=== PATIENT | female | born 1940 | race Caucasian/White ===

== ENCOUNTER → 2016-07-15 | Outpatient (CLI) | payer MEDICARE, OTHER | END | disposition home or self-care (01) | LOC: YCFC.O 10:14 | PROVIDERS: ATTEND Anesthesiology Pain Medicine | DX: Z79.891 Long term (current) use of opiate analgesic (principal) ==

== ENCOUNTER 2016-07-28 21:13 | Emergency (ER) | payer MEDICARE, OTHER ==
[2016-07-28 21:35] VITALS: TEMP 98.9
[2016-07-28 21:46] VITALS: O2SAT 100
[2016-07-28] MEDS ORDERED: cloNIDine HCL 0.1 MG TAB PO ONE (22:06)
--- NOTE | 2016-07-28 23:41 | ED.PDOC ---
History of Present Illness - General Chief Complaint: Blood Pressure Problem Stated Complaint: blood pressure elevated Time Seen by Provider: 07/28/16 21:27 Source: patient Exam Limitations: no limitations - History of Present Illness Initial Comments: the patient is a 76-year-old female presenting to the emergency room due to elevated blood pressure. This evening she was feeling a little bit tremulous and mildly dizzy. She took her blood pressure several times and found the systolics were in the 2 teens. She normally takes losartan in the morning but does not really check her blood pressure in the evening. She reports normal blood pressures in the mornings are in the 140s to 160s on the systolic end. No sick or near-syncope. No severe headache. No neurological changes. No falls. No new symptoms otherwise. Timing/Duration: 1-3 hours Severity: mild Improving Factors: nothing Worsening Factors: nothing Associated Symptoms: malaise Allergies/Adverse Reactions: Allergies NO KNOWN ALLERGY Allergy (Unverified 02/12/13 07:25) Home Medications: Ambulatory Orders Aspirin 81 mg PO DAILY 02/12/13 Duloxetine HCl [Cymbalta] 60 mg PO BID 02/12/13 HYDROcodone 5MG/APAP 325MG [Cumming 5/325] 1 ea PO BID 02/12/13 Levothyroxine Sodium [Synthroid] 125 mcg PO DAILY 02/12/13 Telmisartan-Amlodipine [Twynsta] 1 tab PO DAILY 02/12/13 Bimatoprost 0.01% Opth [Lumigan Opth Jennifer] 2.5 ml OPHTH DAILY 11/24/13 Coconut Oil [Coconut Oil Organic] 1,000 mg PO DAILY 11/24/13 Duloxetine HCl 60 mg PO BID 11/24/13 HYDROcodone 10MG/APAP 325MG [Cumming 10/325] 1 tab PO Q4H PRN 11/24/13 Levothyroxine Sodium [Synthroid] 0.112 mg PO 0700 11/24/13 Telmisartan-Amlodipine [Twynsta 80-5 mg] 1 tab PO DAILY 11/24/13 Amitriptyline HCl [Elavil] 25 - 50 mg PO QPM #20 tab 03/08/14 predniSONE [Prednisone] 40 mg PO DAILY #10 tab 03/08/14 Review of Systems - Review of Systems Constitutional: States: malaise EENTM: States: no symptoms reported Respiratory: States: no symptoms reported Cardiology: States: no symptoms reported Gastrointestinal/Abdominal: States: no symptoms reported Genitourinary: States: no symptoms reported Musculoskeletal: States: no symptoms reported Skin: States: no symptoms reported Neurological: States: tremors Endocrine: States: no symptoms reported All other Systems: No Change from Baseline Past Medical History (General) - Patient Medical History Hx Seizures: No Hx Stroke: No Hx Dementia: No Hx Asthma: No Hx of COPD: No Hx Cardiac Disorders: No Hx Congestive Heart Failure: No Hx Pacemaker: No Hx Hypertension: Yes Hx Thyroid Disease: Yes Hx Diabetes: Yes Hx Gastroesophageal Reflux: No Hx Renal Disease: No Hx Cancer: No Hx of HIV: No Hx MRSA: No Surgical History: other - Vaccination History Hx Influenza Vaccination: Yes Immunizations Up to Date: Yes - Social History Hx Tobacco Use: No Hx Chewing Tobacco Use: No Hx Alcohol Use: Yes Hx Substance Use: No Hx Substance Use Treatment: No Hx Depression: No Hx Physical Abuse: No Hx Emotional Abuse: No Hx Suspected Abuse: No - Female History Patient : No Family Medical History - Family History Mother Age (years): 93 Living Status: Still Living Hx Family Asthma: No Hx Family Congestive Heart Failure: No Hx Family Hypertension: Yes Hx Family Stroke: No Hx Family Diabetes: No Hx Family Cancer: No Father Family History: Unknown Living Status: Age at (years of age): 70 Cause of : alz Hx Family Asthma: No Hx Family Congestive Heart Failure: No Hx Family Hypertension: No Hx Family Stroke: No Hx Family Diabetes: No Hx Family Cancer: No Physical Exam - Physical Exam General Appearance: Alert, Comfortable, No apparent distress Eye Exam: bilateral normal Ears, Nose, Throat: normal ENT inspection, normal pharynx Neck: non-tender, full range of motion, supple, normal inspection Respiratory: chest non-tender, lungs clear, normal breath sounds, no respiratory distress, no accessory muscle use Cardiovascular/Chest: normal peripheral pulses, regular rate, rhythm, no edema Peripheral Pulses: radial,right: 2+, radial,left: 2+, dorsalis pedis,right: 2+, dorsalis pedis,left: 2+ Gastrointestinal/Abdominal: non tender, soft Rectal Exam: deferred Back Exam: normal inspection Extremity: normal range of motion, non-tender, normal inspection, no pedal edema , normal capillary refill Neurologic: alert, normal mood/affect, oriented x 3 Skin Exam: normal color Comments: Vital Signs - 24 hr 07/28/16 07/28/16 07/28/16 21:31 21:45 21:56 Temperature 98.9 F Pulse Rate Pulse Rate [ 84 68 71 monitor] Respiratory 20 16 Rate Blood Pressure 220/86 204/102 201/85 [Left Arm] Blood Pressure 203/98 [Right Arm] O2 Sat by Pulse 97 100 Oximetry 07/28/16 07/28/16 07/28/16 22:13 22:36 22:47 Temperature Pulse Rate 62 Pulse Rate [ 65 72 62 monitor] Respiratory Rate Blood Pressure 195/67 191/94 168/93 [Left Arm] Blood Pressure [Right Arm] O2 Sat by Pulse Oximetry 07/28/16 07/28/16 07/28/16 22:59 23:00 23:10 Temperature Pulse Rate Pulse Rate [ 62 80 62 monitor] Respiratory 21 Rate Blood Pressure 161/87 161/87 138/85 [Left Arm] Blood Pressure [Right Arm] O2 Sat by Pulse 100 Oximetry 07/28/16 07/28/16 23:21 23:37 Temperature Pulse Rate 62 64 Pulse Rate [ monitor] Respiratory Rate Blood Pressure 138/68 141/67 [Left Arm] Blood Pressure [Right Arm] O2 Sat by Pulse Oximetry Progress - Progress Progress: 07/28/16 23:42 the patient is a 76-year-old female presenting with mildly symptomatic uncontrolled hypertension. She received 1 dose of oral clonidine and blood pressures have come down to the 130s and 140s on the systolic end. The patient needs to check her blood pressure twice daily when she is good and relaxed. She is going to be written a prescription for Norvasc 5 mg daily to be taken in the evening. If her systolic blood pressures are falling below the 120s with any regularity then she will discontinue this. She needs to follow- up with her primary care doctor towards the end of next week. Return to the emergency room for any acute worsening. ER warnings were given. Departure - Departure Clinical Impression: Uncontrolled hypertension Disposition: Discharge to Home or Self Care Condition: Fair Departure Forms: ED Discharge - Pt. Copy, Patient Portal Self Enrollment Instructions: DI for High Blood Pressure Diet: low salt diet Activity: increase activity as tolerated Referrals: JOSE SCOTT [Primary Care Provider] - 1-2 Weeks Home Medications: Ambulatory Orders Aspirin 81 mg PO DAILY 02/12/13 Duloxetine HCl [Cymbalta] 60 mg PO BID 02/12/13 HYDROcodone 5MG/APAP 325MG [Cumming 5/325] 1 ea PO BID 02/12/13 Levothyroxine Sodium [Synthroid] 125 mcg PO DAILY 02/12/13 Telmisartan-Amlodipine [Twynsta] 1 tab PO DAILY 02/12/13 Bimatoprost 0.01% Opth [Lumigan Opth Jennifer] 2.5 ml OPHTH DAILY 11/24/13 Coconut Oil [Coconut Oil Organic] 1,000 mg PO DAILY 11/24/13 Duloxetine HCl 60 mg PO BID 11/24/13 HYDROcodone 10MG/APAP 325MG [Cumming 10/325] 1 tab PO Q4H PRN 11/24/13 Levothyroxine Sodium [Synthroid] 0.112 mg PO 0700 11/24/13 Telmisartan-Amlodipine [Twynsta 80-5 mg] 1 tab PO DAILY 11/24/13 Amitriptyline HCl [Elavil] 25 - 50 mg PO QPM #20 tab 03/08/14 predniSONE [Prednisone] 40 mg PO DAILY #10 tab 03/08/14 Additional Instructions: the patient is a 76-year-old female presenting with mildly symptomatic uncontrolled hypertension. She received 1 dose of oral clonidine and blood pressures have come down to the 130s and 140s on the systolic end. The patient needs to check her blood pressure twice daily when she is good and relaxed. She is going to be written a prescription for Norvasc 5 mg daily to be taken in the evening. If her systolic blood pressures are falling below the 120s with any regularity then she will discontinue this. She needs to follow- up with her primary care doctor towards the end of next week. Return to the emergency room for any acute worsening. ER warnings were given.
[2016-07-28 23:57] VITALS: BP 130/85
== END 2016-07-28 23:57 | disposition home or self-care (01) ==
LOC: ER 21:13
DX: I10 Essential (primary) hypertension (principal); E07.9 Disorder of thyroid, unspecified; E11.9 Type 2 diabetes mellitus without complications; Z79.899 Other long term (current) drug therapy; Z79.82 Long term (current) use of aspirin

== ENCOUNTER 2016-08-12 08:00 | Day surgery (SDC) | payer MEDICARE, OTHER ==
[2016-08-12] MEDS ORDERED: SODIUM BICARBONATE VIAL 50 MEQ/50 ML VIAL ONE (09:59)
[2016-08-12] MEDS ORDERED: LIDOCAINE 1% MPF 5 ML VIAL ONE ×2 (09:59→10:10)
[2016-08-12] MEDS ORDERED: methylPREDNISolone ACETATE 80 MG/ML VIAL ONE (09:59)
[2016-08-12] MEDS ORDERED: SODIUM CHLORIDE 0.9% 10 ML VIAL ONE (09:59)
[2016-08-12 11:47] VITALS: O2SAT 99
[2016-08-12 13:12] VITALS: BP 193/78; TEMP 98.2
== END 2016-08-12 13:10 | disposition home or self-care (01) ==
LOC: AMB 08:00
PROVIDERS: ATTEND Anesthesiology Pain Medicine
DX: M54.16 Radiculopathy, lumbar region (principal); G89.4 Chronic pain syndrome; M96.1 Postlaminectomy syndrome, not elsewhere classified; Z79.82 Long term (current) use of aspirin; Z79.899 Other long term (current) drug therapy
CPT/HCPCS: 62323; 76000; J1030

== ENCOUNTER → 2016-08-20 | Outpatient (CLI) | payer OTHER | END | disposition home or self-care (01) | LOC: YCFC.O 10:01 | PROVIDERS: ATTEND Nurse Practitioner Family | DX: I10 Essential (primary) hypertension (principal); E03.9 Hypothyroidism, unspecified; Z13.220 Encounter for screening for lipoid disorders ==

== ENCOUNTER → 2016-09-11 | Outpatient (CLI) | payer OTHER ==
--- NOTE | 2016-09-12 14:35 | RAD ---
History: Bruit. Preoperative evaluation. Chest x-ray: PA and lateral views are compared with 2014 exam. Mild rotation to the thoracolumbar spine results in distortion of the mediastinal soft tissues. Overall contour is stable since the more remote study. No pulmonary infiltrate or effusion. Diffuse osteopenia. IMPRESSION: Stable chest since 2014. Electronically signed by: Yani Sabillon MD 09/12/2016 2:34 PM CDT
== END | disposition home or self-care (01) ==
LOC: YCFC.O 15:32
PROVIDERS: ATTEND Nurse Practitioner Family
DX: R53.83 Other fatigue (principal); R09.89 Other specified symptoms and signs involving the circulatory and respiratory systems; R50.9 Fever, unspecified

== ENCOUNTER 2017-01-18 05:15 | Emergency (ER) | payer OTHER ==
[2017-01-18 05:35] VITALS: TEMP 96.9; O2SAT 98
[2017-01-18] MEDS ORDERED: KETOROLAC TROMETHAMINE INJ 30 MG/ML VIAL IM ONE (05:42)
--- NOTE | 2017-01-18 05:45 | ED.PDOC ---
History of Present Illness - General Chief Complaint: Back Pain or Injury Stated Complaint: pinching pain to lower back Time Seen by Provider: 01/18/17 05:36 Source: patient - History of Present Illness Initial Comments: Patient presents with acute on chronic back pain. Lumbar area with radiation down the left leg. She just had back surgery one week ago. Has had previous episodes. Feels like "needles" and shoots down the leg from the left lower back. No associated symptoms. No other complaints. Timing/Duration: 4-6 hours Severity: moderate Improving Factors: rest Worsening Factors: movement Associated Symptoms: denies symptoms Allergies/Adverse Reactions: Allergies NO KNOWN ALLERGY Allergy (Verified 01/18/17 05:27) Home Medications: Ambulatory Orders Aspirin 81 mg PO DAILY 02/12/13 Levothyroxine Sodium [Synthroid] 100 mcg PO DAILY 08/12/16 Losartan Potassium & Hydrochlo [Losartan Potassium/Hydroc 50-12.5 mg] 1 tab PO DAILY 08/12/16 Zolpidem Tartrate [Ambien] 5 mg PO BEDTIME 08/12/16 Acetaminophen W/ Codeine [Tylenol W/ CODEINE #3] 1 - 2 ea PO PRN PRN 01/18/17 Bimatoprost 0.01% Ophth [Lumigan Ophth Jennifer] 1 each OPHTH BEDTIME 01/18/17 Cyclobenzaprine HCl [Flexeril] 1 each PO PRN PRN 01/18/17 Tramadol HCl [Ultram] 50 mg PO PRN PRN 01/18/17 Review of Systems - Review of Systems Constitutional: States: no symptoms reported EENTM: States: no symptoms reported Respiratory: States: no symptoms reported Cardiology: States: no symptoms reported Gastrointestinal/Abdominal: States: no symptoms reported Genitourinary: States: no symptoms reported Musculoskeletal: States: see HPI Skin: States: no symptoms reported Neurological: States: no symptoms reported Endocrine: States: no symptoms reported Hematologic/Lymphatic: States: no symptoms reported Past Medical History (General) - Patient Medical History Hx Seizures: No Hx Stroke: No Hx Dementia: No Hx Asthma: No Hx of COPD: No Hx Cardiac Disorders: No Hx Congestive Heart Failure: No Hx Pacemaker: No Hx Hypertension: Yes Hx Thyroid Disease: Yes Hx Diabetes: No Hx Gastroesophageal Reflux: No Hx Renal Disease: No Hx Cancer: No Hx of HIV: No Hx MRSA: No Surgical History: other - Vaccination History Hx Tetanus, Diphtheria Vaccination: No Hx Influenza Vaccination: Yes Hx Pneumococcal Vaccination: No - Social History Hx Tobacco Use: No Years Tobacco Use: 30 Hx Chewing Tobacco Use: No Hx Alcohol Use: Yes - occ Hx Substance Use: No Hx Substance Use Treatment: No Hx Depression: No Hx Physical Abuse: No Hx Emotional Abuse: No Hx Suspected Abuse: No - Female History Patient : No Family Medical History - Family History Mother Age (years): 93 Living Status: Still Living Hx Family Asthma: No Hx Family Congestive Heart Failure: No Hx Family Hypertension: Yes Hx Family Stroke: No Hx Family Diabetes: No Hx Family Cancer: No Father Family History: Unknown Living Status: Age at (years of age): 70 Cause of : alz Hx Family Asthma: No Hx Family Congestive Heart Failure: No Hx Family Hypertension: No Hx Family Stroke: No Hx Family Diabetes: No Hx Family Cancer: No Physical Exam - Physical Exam General Appearance: Alert Respiratory: lungs clear Cardiovascular/Chest: normal peripheral pulses Gastrointestinal/Abdominal: normal bowel sounds, non tender, soft Extremity: other - positive straight leg raise. Negative cross-leg. Lumbar area NTTP. Progress - Progress Progress: 01/18/17 05:45 Toradol 30 mg IM x one. Departure - Departure Clinical Impression: Low back pain Disposition: Discharge to Home or Self Care Condition: Good Departure Forms: ED Discharge - Pt. Copy, Patient Portal Self Enrollment Diet: resume usual diet Activity: increase activity as tolerated Referrals: Nay Ordoñez FNP [Primary Care Provider] - 1-2 Weeks Home Medications: Ambulatory Orders Aspirin 81 mg PO DAILY 02/12/13 Levothyroxine Sodium [Synthroid] 100 mcg PO DAILY 08/12/16 Losartan Potassium & Hydrochlo [Losartan Potassium/Hydroc 50-12.5 mg] 1 tab PO DAILY 08/12/16 Zolpidem Tartrate [Ambien] 5 mg PO BEDTIME 08/12/16 Acetaminophen W/ Codeine [Tylenol W/ CODEINE #3] 1 - 2 ea PO PRN PRN 01/18/17 Bimatoprost 0.01% Ophth [Lumigan Ophth Ejnnifer] 1 each OPHTH BEDTIME 01/18/17 Cyclobenzaprine HCl [Flexeril] 1 each PO PRN PRN 01/18/17 Tramadol HCl [Ultram] 50 mg PO PRN PRN 01/18/17
[2017-01-18 06:10] VITALS: BP 138/77
== END 2017-01-18 06:10 | disposition home or self-care (01) ==
LOC: ER 05:15
DX: M54.5 Low back pain (principal); I10 Essential (primary) hypertension; E07.9 Disorder of thyroid, unspecified; Z79.82 Long term (current) use of aspirin; Z79.899 Other long term (current) drug therapy

== ENCOUNTER 2017-01-19 01:42 | Emergency (ER) | payer OTHER ==
[2017-01-19 01:58] VITALS: BP 157/72; TEMP 97.3; O2SAT 98
[2017-01-19] MEDS ORDERED: KETOROLAC TROMETHAMINE INJ 60 MG/2 ML VIAL IM ONE (02:02)
--- NOTE | 2017-01-19 02:05 | ED.PDOC ---
History of Present Illness - General Chief Complaint: Back Pain or Injury Stated Complaint: back pain Time Seen by Provider: 01/19/17 01:43 Source: patient, RN notes reviewed, Vital Signs reviewed, old records Exam Limitations: no limitations - History of Present Illness Initial Comments: Patient had significant back surgery ~1 week ago. She was here last night with pain and was given Toradol which really helped. She felt well most of the day but tonight the pain worsened again and the Tylenol #3 and Flexeril were not getting her pain controlled. She came to see if she could get another shot of Toradol since it worked so well for her last night. The pain is in her low back and going down her L leg. Timing/Duration: 1 week Quality/Severity: severe Back Pain Location: lumbar spine Back Pain Radiation: lower legs Method of Injury/Prior Injury: other - Recent surgery Improving Factors: medication - Toradol Worsening Factors: movement Associated Symptoms: lower back pain Allergies/Adverse Reactions: Allergies NO KNOWN ALLERGY Allergy (Verified 01/18/17 05:27) Home Medications: Ambulatory Orders Aspirin 81 mg PO DAILY 02/12/13 Levothyroxine Sodium [Synthroid] 100 mcg PO DAILY 08/12/16 Losartan Potassium & Hydrochlo [Losartan Potassium/Hydroc 50-12.5 mg] 1 tab PO DAILY 08/12/16 Zolpidem Tartrate [Ambien] 5 mg PO BEDTIME 08/12/16 Acetaminophen W/ Codeine [Tylenol W/ CODEINE #3] 1 - 2 ea PO PRN PRN 01/18/17 Bimatoprost 0.01% Ophth [Lumigan Ophth Jennifer] 1 each OPHTH BEDTIME 01/18/17 Cyclobenzaprine HCl [Flexeril] 1 each PO PRN PRN 01/18/17 Tramadol HCl [Ultram] 50 mg PO PRN PRN 01/18/17 Review of Systems - Review of Systems Constitutional: States: no symptoms reported Respiratory: States: no symptoms reported Cardiology: States: no symptoms reported Musculoskeletal: States: back pain Skin: States: no symptoms reported Neurological: States: no symptoms reported All other Systems: No Change from Baseline Past Medical History (General) - Patient Medical History Hx Seizures: No Hx Stroke: No Hx Dementia: No Hx Asthma: No Hx of COPD: No Hx Cardiac Disorders: No Hx Congestive Heart Failure: No Hx Pacemaker: No Hx Hypertension: Yes Hx Thyroid Disease: Yes Hx Diabetes: No Hx Gastroesophageal Reflux: No Hx Renal Disease: No Hx Cancer: No Hx of HIV: No Hx Hepatitis C: No Hx MRSA: No - Vaccination History Hx Tetanus, Diphtheria Vaccination: Yes Hx Influenza Vaccination: Yes Hx Pneumococcal Vaccination: No Immunizations Up to Date: Yes - Social History Hx Tobacco Use: No Hx Chewing Tobacco Use: No Hx Alcohol Use: Yes Hx Substance Use: No Hx Substance Use Treatment: No Hx Depression: No Hx Physical Abuse: No Hx Emotional Abuse: No Hx Suspected Abuse: No - Female History Patient is a Female of Child Bearing Age (10 -59 yrs old): No Patient : No Family Medical History - Family History Mother Age (years): 93 Living Status: Still Living Hx Family Asthma: No Hx Family Congestive Heart Failure: No Hx Family Hypertension: Yes Hx Family Stroke: No Hx Family Diabetes: No Hx Family Cancer: No Father Family History: Unknown Living Status: Age at (years of age): 70 Cause of : alz Hx Family Asthma: No Hx Family Congestive Heart Failure: No Hx Family Hypertension: No Hx Family Stroke: No Hx Family Diabetes: No Hx Family Cancer: No Physical Exam - Physical Exam General Appearance: Alert, Comfortable, No apparent distress, Well Developed, Well Groomed, Well Hydrated, Well Nourished Extremity Exam: normal range of motion, non-tender Neurologic: no motor/sensory deficits, alert, normal mood/affect, oriented x 3 Skin Exam: normal color, warm/dry Departure - Departure Clinical Impression: Low back pain Qualifiers: Chronicity: acute Back pain laterality: left Sciatica presence: with sciatica Sciatica laterality: sciatica of left side Qualified Code(s): M54.42 - Lumbago with sciatica, left side Time of Disposition: 02:06 Disposition: Discharge to Home or Self Care Condition: Good Departure Forms: ED Discharge - Pt. Copy, Patient Portal Self Enrollment Instructions: DI for Back Pain With Sciatica Diet: resume usual diet Activity: increase activity as tolerated Referrals: Nay Ordoñez FNP [Primary Care Provider] - 1-2 Weeks Home Medications: Ambulatory Orders Aspirin 81 mg PO DAILY 02/12/13 Levothyroxine Sodium [Synthroid] 100 mcg PO DAILY 08/12/16 Losartan Potassium & Hydrochlo [Losartan Potassium/Hydroc 50-12.5 mg] 1 tab PO DAILY 08/12/16 Zolpidem Tartrate [Ambien] 5 mg PO BEDTIME 08/12/16 Acetaminophen W/ Codeine [Tylenol W/ CODEINE #3] 1 - 2 ea PO PRN PRN 01/18/17 Bimatoprost 0.01% Ophth [Lumigan Ophth Jennifer] 1 each OPHTH BEDTIME 01/18/17 Cyclobenzaprine HCl [Flexeril] 1 each PO PRN PRN 01/18/17 Tramadol HCl [Ultram] 50 mg PO PRN PRN 01/18/17
== END 2017-01-19 02:25 | disposition home or self-care (01) ==
LOC: ER 01:42
DX: M54.42 Lumbago with sciatica, left side (principal); I10 Essential (primary) hypertension; E07.9 Disorder of thyroid, unspecified; Z79.82 Long term (current) use of aspirin; Z79.899 Other long term (current) drug therapy

== ENCOUNTER 2017-02-02 11:59 | Emergency (ER) | payer MEDICARE, OTHER ==
--- NOTE | 2017-02-02 12:21 | ED.PDOC ---
History of Present Illness - General Chief Complaint: General Stated Complaint: dizziness Time Seen by Provider: 02/02/17 12:15 Source: patient Exam Limitations: no limitations - History of Present Illness Initial Comments: Jennifer Simpson 76 y/o female with recent back surgery stated that she might have taken several of her medications-muscle relaxer,diazepam,and pain medications. Had been feeling dizzy since yesterday.No blurry vision,syncopal episode ,numbness or double vision fever. Timing/Duration: 24 hours Severity: moderate Worsening Factors: movement Associated Symptoms: denies symptoms Allergies/Adverse Reactions: Allergies NO KNOWN ALLERGY Allergy (Verified 02/02/17 12:22) Home Medications: Ambulatory Orders Aspirin 81 mg PO DAILY 02/12/13 Levothyroxine Sodium [Synthroid] 100 mcg PO DAILY 08/12/16 Losartan Potassium & Hydrochlo [Losartan Potassium/Hydroc 50-12.5 mg] 1 tab PO DAILY 08/12/16 Zolpidem Tartrate [Ambien] 5 mg PO BEDTIME 08/12/16 Acetaminophen W/ Codeine [Tylenol W/ CODEINE #3] 1 - 2 ea PO PRN PRN 01/18/17 Bimatoprost 0.01% Ophth [Lumigan Ophth Jennifer] 1 each OPHTH BEDTIME 01/18/17 Cyclobenzaprine HCl [Flexeril] 1 each PO PRN PRN 01/18/17 Tramadol HCl [Ultram] 50 mg PO PRN PRN 01/18/17 Review of Systems - Review of Systems Constitutional: States: no symptoms reported EENTM: States: no symptoms reported Respiratory: States: no symptoms reported Cardiology: States: no symptoms reported Gastrointestinal/Abdominal: States: no symptoms reported Genitourinary: States: no symptoms reported Musculoskeletal: States: no symptoms reported Skin: States: no symptoms reported Neurological: States: no symptoms reported Endocrine: States: no symptoms reported Hematologic/Lymphatic: States: no symptoms reported Past Medical History (General) - Patient Medical History Hx Seizures: No Hx Stroke: No Hx Dementia: No Hx Asthma: No Hx of COPD: No Hx Cardiac Disorders: No Hx Congestive Heart Failure: No Hx Pacemaker: No Hx Hypertension: Yes Hx Thyroid Disease: Yes Hx Diabetes: No Hx Gastroesophageal Reflux: No Hx Renal Disease: No Hx Cancer: No Hx of HIV: No Hx Hepatitis C: No Hx MRSA: No Surgical History: other - low back,cataract - Vaccination History Hx Tetanus, Diphtheria Vaccination: Yes Hx Influenza Vaccination: Yes Hx Pneumococcal Vaccination: No - Social History Hx Tobacco Use: No Hx Chewing Tobacco Use: No Hx Alcohol Use: Yes Hx Substance Use: No Hx Substance Use Treatment: No Hx Depression: No Hx Physical Abuse: No Hx Emotional Abuse: No Hx Suspected Abuse: No - Female History Patient : No Family Medical History - Family History Mother Age (years): 93 Living Status: Still Living Hx Family Asthma: No Hx Family Congestive Heart Failure: No Hx Family Hypertension: Yes Hx Family Stroke: No Hx Family Diabetes: No Hx Family Cancer: No Father Family History: Unknown Living Status: Age at (years of age): 70 Cause of : alz Hx Family Asthma: No Hx Family Congestive Heart Failure: No Hx Family Hypertension: No Hx Family Stroke: No Hx Family Diabetes: No Hx Family Cancer: No Physical Exam - Physical Exam General Appearance: Alert, Comfortable, No apparent distress Eye Exam: bilateral normal Ears, Nose, Throat: hearing grossly normal, normal ENT inspection, normal pharynx Neck: full range of motion, supple Respiratory: chest non-tender, lungs clear Cardiovascular/Chest: normal peripheral pulses, regular rate, rhythm, no gallop , no murmur Peripheral Pulses: radial,right: 1+, radial,left: 1+, dorsalis pedis,right: 1+, dorsalis pedis,left: 1+ Gastrointestinal/Abdominal: normal bowel sounds, non tender, soft Rectal Exam: normal exam, normal rectal tone, other - impacted stool Extremity: non-tender, no pedal edema, no calf tenderness Neurologic: no motor/sensory deficits, alert, normal mood/affect, oriented x 3, other - speech fluent Skin Exam: normal color, warm/dry, other - well healed skin surgical incision Lymphatic: no adenopathy Progress - Progress Progress: 02/02/17 12:24 Vital Signs - 8 hr 02/02/17 12:00 Temperature 97.3 F L Pulse Rate [ 100 H pulse ox] Respiratory 18 Rate Blood Pressure 105/60 [Left Arm] - Results/Orders Results/Orders: Laboratory Tests 02/02/17 02/02/17 02/02/17 12:39 12:39 12:39 WBC 7.6 RBC 4.45 Hgb 13.1 Hct 39.5 MCV 88.6 MCH 29.5 MCHC 33.3 RDW 13.6 Plt Count 399 MPV 7.5 Absolute Neuts (auto) 4.50 Absolute Lymphs (auto) 1.90 Absolute Monos (auto) 0.60 Absolute Eos (auto) 0.60 H Absolute Basos (auto) 0.00 Neutrophils % 58.9 Lymphocytes % 24.5 Monocytes % 8.0 Eosinophils % 8.1 H Basophils % 0.5 Sodium 137 Potassium 4.3 Chloride 103 Carbon Dioxide 21 Anion Gap 17.3 BUN 39 H Creatinine 1.63 H BUN/Creatinine Ratio 23.9 H Random Glucose 106 H Serum Osmolality 283.6 Calcium 10.2 Total Bilirubin 0.7 AST 17 ALT 12 Alkaline Phosphatase 79 Troponin I < 0.02 Serum Total Protein 7.1 Albumin 4.3 Globulin 2.8 Albumin/Globulin Ratio 1.5 Stool Occult Blood 02/02/17 12:41 WBC RBC Hgb Hct MCV MCH MCHC RDW Plt Count MPV Absolute Neuts (auto) Absolute Lymphs (auto) Absolute Monos (auto) Absolute Eos (auto) Absolute Basos (auto) Neutrophils % Lymphocytes % Monocytes % Eosinophils % Basophils % Sodium Potassium Chloride Carbon Dioxide Anion Gap BUN Creatinine BUN/Creatinine Ratio Random Glucose Serum Osmolality Calcium Total Bilirubin AST ALT Alkaline Phosphatase Troponin I Serum Total Protein Albumin Globulin Albumin/Globulin Ratio Stool Occult Blood Negative - EKG/XRAY/CT EKG: Sinus, no ST T wave changes Comments: heart rate 88 Departure - Departure Clinical Impression: Dehydration symptoms, Renal insufficiency, Orthostatic dizziness, Constipation due to opioid therapy, History of lumbosacral spine surgery Time of Disposition: 14:20 Disposition: Discharge to Home or Self Care Condition: Good Instructions: DI for Dehydration -- Adult Activity: increase activity as tolerated Referrals: Nay Orodñez [employer]NAGER [Primary Care Provider] - 1-2 Weeks Home Medications: Ambulatory Orders Aspirin 81 mg PO DAILY 02/12/13 Levothyroxine Sodium [Synthroid] 100 mcg PO DAILY 08/12/16 Losartan Potassium & Hydrochlo [Losartan Potassium/Hydroc 50-12.5 mg] 1 tab PO DAILY 08/12/16 Zolpidem Tartrate [Ambien] 5 mg PO BEDTIME 08/12/16 Acetaminophen W/ Codeine [Tylenol W/ CODEINE #3] 1 - 2 ea PO PRN PRN 01/18/17 Bimatoprost 0.01% Ophth [Lumigan Ophth Jennifer] 1 each OPHTH BEDTIME 01/18/17 Cyclobenzaprine HCl [Flexeril] 1 each PO PRN PRN 01/18/17 Tramadol HCl [Ultram] 50 mg PO PRN PRN 01/18/17 Additional Instructions: Need to drink additional water;May use over the counter MIRALAX as directed on package insert,citrucel,for constipation;DO NOT TAKE DIAZEPAM and FLEXERIL TOGETHER PLEASE READ PHARMACY PACKAGE INSERT BEFORE TAKING ANY MEDICINE AND IF THERE IS QUESTION CALL THE MD PRESCRIBER;Follow up with primary md 2016 call for appointment
[2017-02-02 12:22] VITALS: TEMP 97.3
[2017-02-02] MEDS ORDERED: LACTATED RINGERS 1,000 ML IVS ONE (12:25)
[2017-02-02] MEDS ORDERED: SODIUM CHLORIDE 0.9% 500ML 500 ML IVS ONE (13:44)
[2017-02-02] MEDS ORDERED: LABETALOL INJ 5 MG/ML VIAL IV ONE (14:34)
[2017-02-02] MEDS ORDERED: KETOROLAC TROMETHAMINE INJ 30 MG/ML VIAL IV ONE (14:34)
[2017-02-02] MEDS ORDERED: PROMETHAZINE HCL INJ 25 MG/ML VIAL IM ONE (14:48)
[2017-02-02 16:28] VITALS: BP 151/91; O2SAT 95
== END 2017-02-02 14:15 | disposition home or self-care (01) ==
LOC: ER 11:59
DX: R42 Dizziness and giddiness (principal); E86.0 Dehydration; K59.03 Drug induced constipation; N28.9 Disorder of kidney and ureter, unspecified; I10 Essential (primary) hypertension; E07.9 Disorder of thyroid, unspecified; Z79.82 Long term (current) use of aspirin; T40.2X5A Adverse effect of other opioids, initial encounter; Y92.9 Unspecified place or not applicable
CPT/HCPCS: 36415; 80053; 82270; 84443; 84484; 85025; 93005; J1885; J2550; J7040; J7120

== ENCOUNTER → 2017-03-20 | Outpatient (CLI) | payer OTHER | END | disposition home or self-care (01) | LOC: GMAJ 12:01 | PROVIDERS: ATTEND Family Medicine | DX: E03.9 Hypothyroidism, unspecified (principal) ==

== ENCOUNTER 2017-05-06 12:03 | Emergency (ER) | payer OTHER ==
[2017-05-06 12:19] VITALS: TEMP 96.5
[2017-05-06] MEDS ORDERED: SODIUM CHLORIDE 0.9% (FLUSH) 10 ML SYG IV PRN (12:55)
--- NOTE | 2017-05-06 13:03 | ED.PDOC ---
History of Present Illness - General Chief Complaint: Blood Pressure Problem Stated Complaint: elevated blood pressure Time Seen by Provider: 05/06/17 12:15 Source: patient Exam Limitations: no limitations - History of Present Illness Initial Comments: PT PRESENTS TO THE ED FROM PHYSICIAL THERAPY AFTER HAVING AN EPISODE OF DIZZINESS. PT WAS THEN FOUND TO HAVE AN ELEVATED BP READING. PTS BLOOD PRESSURE IS NORMAL IN TRIAGE TODAY AND PATIENT DENIES SYMPTOMS OF DIZZINESS CURRENTLY. PT STATES THAT DIZZINESS HAS BEEN INTERMITTENT OVER THE PAST WEEK. Timing/Duration: 1 week Severity: mild Improving Factors: rest Worsening Factors: nothing Associated Symptoms: denies symptoms Allergies/Adverse Reactions: Allergies NO KNOWN ALLERGY Allergy (Verified 02/02/17 12:22) Home Medications: Ambulatory Orders Aspirin 81 mg PO DAILY 02/12/13 Levothyroxine Sodium [Synthroid] 100 mcg PO DAILY 08/12/16 Bimatoprost 0.01% Ophth [Lumigan Ophth Jennifer] 1 each OPHTH BEDTIME 01/18/17 Tramadol HCl [Ultram] 50 mg PO PRN PRN 01/18/17 Gabapentin 05/06/17 Review of Systems - Review of Systems Constitutional: Denies: chills, fever EENTM: Denies: nose congestion, throat pain Respiratory: Denies: cough, short of breath Cardiology: Denies: chest pain, palpitations, syncope Gastrointestinal/Abdominal: Denies: diarrhea, nausea, vomiting Genitourinary: Denies: dysuria, frequency Musculoskeletal: Denies: joint pain, joint swelling Skin: Denies: dryness, lesions Neurological: Denies: headache, numbness Endocrine: States: no symptoms reported Hematologic/Lymphatic: States: no symptoms reported Past Medical History (General) - Patient Medical History Hx Seizures: No Hx Stroke: No Hx Dementia: No Hx Asthma: No Hx of COPD: No Hx Cardiac Disorders: No Hx Congestive Heart Failure: No Hx Pacemaker: No Hx Hypertension: Yes Hx Thyroid Disease: Yes Hx Diabetes: No Hx Gastroesophageal Reflux: No Hx Renal Disease: No Hx Cancer: No Hx of HIV: No Hx Hepatitis C: No Hx MRSA: No - Vaccination History Hx Tetanus, Diphtheria Vaccination: Yes Hx Influenza Vaccination: Yes Hx Pneumococcal Vaccination: No - Social History Hx Tobacco Use: Yes Hx Chewing Tobacco Use: No Hx Alcohol Use: Yes Hx Substance Use: No Hx Substance Use Treatment: No Hx Depression: No Hx Physical Abuse: No Hx Emotional Abuse: No Hx Suspected Abuse: No - Female History Patient : No Family Medical History - Family History Mother Age (years): 93 Living Status: Still Living Hx Family Asthma: No Hx Family Congestive Heart Failure: No Hx Family Hypertension: Yes Hx Family Stroke: No Hx Family Diabetes: No Hx Family Cancer: No Father Family History: Unknown Living Status: Age at (years of age): 70 Cause of : alz Hx Family Asthma: No Hx Family Congestive Heart Failure: No Hx Family Hypertension: No Hx Family Stroke: No Hx Family Diabetes: No Hx Family Cancer: No Physical Exam - Physical Exam General Appearance: Alert, Comfortable, No apparent distress, Well Developed, Well Groomed, Well Hydrated, Well Nourished Ears, Nose, Throat: hearing grossly normal Neck: non-tender, full range of motion Respiratory: lungs clear, normal breath sounds, no respiratory distress Cardiovascular/Chest: regular rate, rhythm, no murmur Gastrointestinal/Abdominal: non tender, soft Back Exam: normal inspection Extremity: non-tender, normal inspection Neurologic: alert, normal mood/affect, oriented x 3 Skin Exam: normal color, warm/dry Progress - Progress Progress: 05/06/17 14:26 PT RESTING COMFORTABLY WITHOUT COMPLAINT. LABS AND DIAGNOSTIC STUDIES DISCUSSED. DISCUSSED THE NEED TO RESTART BP MEDS AND MONITOR BP 2-3 TIMES A DAY AT HOME. RECOMMEND FOLLOW UP WITH PCP REGARDING BP MANAGEMENT. REPEAT BP 190/98. PO LOSARTAN ORDERED. 05/06/17 15:28 PT CONTINUES TO REST COMFORTABLY. REPEAT BP 189/89. - Results/Orders Results/Orders: 05/06/17 12:55 Sodium Chloride 0.9% (Flush) [Saline Flush Syringe] 10 ml IV PRN PRN 05/06/17 12:56 IV Care:Saline Lock per Protoc QSHIFT Telemetry .ONCE EKG Stat Pulse Ox Stat Pulse Oximetry Assessment DAILY 05/06/17 14:30 Losartan Potassium [Cozaar] 100 mg PO DAILY Laboratory Results - last 24 hr 05/06/17 05/06/17 12:56 13:12 WBC 6.5 RBC 4.76 Hgb 14.0 Hct 42.8 MCV 89.8 MCH 29.5 MCHC 32.8 L RDW 14.1 Plt Count 342 MPV 7.6 Absolute Neuts (auto) 4.30 Absolute Lymphs (auto) 1.50 Absolute Monos (auto) 0.50 Absolute Eos (auto) 0.10 Absolute Basos (auto) 0.00 Neutrophils % 66.3 Lymphocytes % 22.9 Monocytes % 8.2 Eosinophils % 2.2 Basophils % 0.4 PT 10.7 INR 0.950 PTT (SP) 32.6 Sodium 139 Potassium 3.7 Chloride 104 Carbon Dioxide 24 Anion Gap 14.7 BUN 14 Creatinine 0.66 BUN/Creatinine Ratio 21.2 H Random Glucose 99 Serum Osmolality 278.0 Calcium 9.8 Magnesium 1.8 Creatine Kinase 51 CK-MB (CK-2) 2.5 CK-MB (CK-2) % Not Reportable Troponin I < 0.02 Urine Color Yellow Urine Appearance Clear Urine pH 7.0 Ur Specific Gallant 1.025 Urine Protein Negative Urine Glucose (UA) Negative Urine Ketones Trace Urine Blood Negative Urine Nitrite Negative Urine Bilirubin Negative Urine Urobilinogen 0.2 Ur Leukocyte Esterase Negative Urine RBC 0-1 Urine WBC 0-1 Ur Epithelial Cells 0-1 Amorphous Sediment 1+ Urine Bacteria 0 Urine Mucus Large - EKG/XRAY/CT EKG: Sinus - @73BPM, NL INTERVALS, NL AXIS, no ST T wave changes, Unchanged from - 02/02/17 Departure - Departure Clinical Impression: Intermittent hypertension, Orthostatic dizziness Time of Disposition: 15:32 Disposition: Discharge to Home or Self Care Condition: Good Departure Forms: ED Discharge - Pt. Copy, Patient Portal Self Enrollment Instructions: DI for High Blood Pressure Referrals: Isra Mathews MD [Primary Care Provider] - 1-5 Days Home Medications: Ambulatory Orders Aspirin 81 mg PO DAILY 02/12/13 Levothyroxine Sodium [Synthroid] 100 mcg PO DAILY 08/12/16 Bimatoprost 0.01% Ophth [Lumigan Ophth Jennifer] 1 each OPHTH BEDTIME 01/18/17 Tramadol HCl [Ultram] 50 mg PO PRN PRN 01/18/17 Gabapentin 05/06/17
[2017-05-06] MEDS ORDERED: LOSARTAN POTASSIUM 100 MG TAB PO SCH (14:30)
[2017-05-06 15:56] VITALS: BP 193/98; O2SAT 99
== END 2017-05-06 15:56 | disposition home or self-care (01) ==
LOC: ER 12:03
DX: I10 Essential (primary) hypertension (principal); R42 Dizziness and giddiness; Z87.891 Personal history of nicotine dependence; Z79.82 Long term (current) use of aspirin; Z79.899 Other long term (current) drug therapy

== ENCOUNTER → 2017-09-18 | Outpatient (CLI) | payer OTHER | LOC: GMAJ 10:16 | PROVIDERS: ATTEND Family Medicine | DX: E03.9 Hypothyroidism, unspecified (principal) ==

== ENCOUNTER → 2017-09-30 | Outpatient (CLI) | payer MEDICARE, OTHER ==
--- NOTE | 2017-10-02 08:57 | MAM ---
EXAM DESCRIPTION: 3D Screening BILATERAL : Digital Mammography. CLINICAL HISTORY: 77 years Female ANNUAL SCREENING . No complaints. No family history of breast cancer. Postmenopausal. Taking HRT approximately 20 years ago. Bilateral cyst aspirations.. COMPARISON: 2-D digital screening bilateral study 04/01/2012.. No prior reports available. TECHNIQUE: Bilateral CC and MLO projection full-field images, 3-D tomosynthesis digital mammographic technique. Also bilateral synthesized CC/ MLO full-field images. CAD not utilized. FINDINGS: The breast parenchymal density pattern is: Heterogeneously dense breast tissue, which may obscure small masses. No skin thickening or nipple retraction bilateral vascular calcifications. Bilateral solitary microcalcifications and coarse calcifications, largest on the left. Bilateral nipple inversion. No focal, stellate mass or density, focal asymmetry , and no suspicious microcalcifications bilaterally. Stable mammograms compared to prior study, taking into account differences in mammographic technique IMPRESSION: BI-RADS CATEGORY: 2 - BENIGN FINDINGS. FOLLOW UP: Routine digital bilateral screening, one year interval from September 2017. Written communication explaining the IMPRESSION and follow-up, will be mailed to the patient and referring health care provider. According to the [employer], yearly mammograms are recommended starting at age 40 and continuing as long as a woman is in good health. Any breast change noted on a breast self-exam should be reported promptly to the patient's healthcare provider. Breast MRI is recommended for women with an approximately 20-25% or greater lifetime risk of breast cancer, including women with a strong family history of breast or ovarian cancer and women who have been treated for Hodgkin's disease. A negative mammographic report should not delay tissue diagnosis in patients with significant clinical history or physical findings. Extremely dense breast tissue limits the sensitivity of digital mammography. Electronically signed by: Shahriar Moreno MD 10/02/2017 8:55 AM CDT
== END ==
LOC: MAMMO 11:22
PROVIDERS: ATTEND Family Medicine
DX: Z12.31 Encounter for screening mammogram for malignant neoplasm of breast (principal)

== ENCOUNTER 2017-12-01 05:49 | Day surgery (SDC) | payer MEDICARE, OTHER ==
[2017-12-01] MEDS ORDERED: PROPOFOL 200 MG/20 ML VIAL IV ONE (07:00)
[2017-12-01] MEDS: LACTATED RINGERS 1,000 ML ONE (07:10)
[2017-12-01] MEDS ORDERED: MIDAZOLAM INJ 2 MG/2 ML VIAL ONE (07:17)
[2017-12-01] MEDS ORDERED: fentaNYL CITRATE INJ 50 MCG/ML AMP ONE (07:18)
--- NOTE | 2017-12-01 10:18 | OP ---
DATE OF PROCEDURE: 12/01/17 PREOPERATIVE DIAGNOSIS: 1. Colon cancer screen. POSTOPERATIVE DIAGNOSIS: 1. Normal colonoscopy to the ascending colon. 2. Very long and tortuous sigmoid colon. 3. External hemorrhoids. PROCEDURE: 1. Colonoscopy. SURGEON: Isra Mathews MD. ANESTHESIA: MAC by Kenneth Molina CRNA. ESTIMATED BLOOD LOSS: None. COMPLICATIONS: None apparent. TECHNIQUE: After informed consent was obtained from the patient, the patient was taken to the Endoscopy Suite and put in the left lateral decubitus position. After adequate IV sedation was obtained, a digital rectal exam was performed. The patient was noted to have large external hemorrhoids. There were no intraluminal masses. The sphincter tone was decreased. The colonoscope was then passed with good visualization the colon. The bowel prep was excellent. As soon as we got into the sigmoid, the patient began having very redundant and repetitive loops. There was almost a "corkscrewing" effect as we traversed through the sigmoid colon. This made passage of the scope very difficult. We did multiple maneuvers and repositioning to try to advance the scope safely, but met lots of resistance. I was able to get through the transverse colon and here briefly into the ascending colon, but was unable to reach the cecum. The scope was then withdrawn slowly over an 8 minute period and the remaining colon was carefully inspected and there were no abnormalities found whatsoever. The scope was removed. The patient tolerated the procedure well. Postoperatively, she was in good condition and released from the Recovery Room per protocol. She will followup with me on a p.r.n. basis. Due to her age of 77, she will not need another colonoscopy at any interval unless she has symptoms that would dictate otherwise. #[id number] [facility]
[2017-12-01 10:24] VITALS: BP 169/74; TEMP 97.1; O2SAT 100
== END 2017-12-01 09:50 | disposition home or self-care (01) ==
LOC: AMB 05:49
PROVIDERS: ATTEND Family Medicine
DX: Z12.11 Encounter for screening for malignant neoplasm of colon (principal); Q43.8 Other specified congenital malformations of intestine; K64.4 Residual hemorrhoidal skin tags; E89.0 Postprocedural hypothyroidism; G89.29 Other chronic pain; M54.5 Low back pain; F32.9 Major depressive disorder, single episode, unspecified; I10 Essential (primary) hypertension; G47.00 Insomnia, unspecified; Z79.82 Long term (current) use of aspirin; Z79.899 Other long term (current) drug therapy
CPT/HCPCS: 00812; 45378; J2250; J3010; J3490; J7120

== ENCOUNTER 2018-04-03 12:03 | Emergency (ER) | payer MEDICARE ==
[2018-04-03 12:37] VITALS: TEMP 97.3
--- NOTE | 2018-04-03 12:39 | ED.PDOC ---
History of Present Illness - General Chief Complaint: Blood Pressure Problem Stated Complaint: blood pressure Time Seen by Provider: 04/03/18 12:29 Source: patient Exam Limitations: no limitations - History of Present Illness Initial Comments: Patient presents with a high blood pressure. She said she woke up this morning feeling like it was high. She said she saw "floaty" things. She claims that this is normal for her when her pressure is high. This symptom has since resolved. 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 She says that she has been having "hot flashes" recently so she unilaterally increased her levothyroxine from 88 mcg per day to 100 mcg per day. She said she started this two days ago. Denies chest pain, dyspnea, history of bipedal edema, arm pain. Currently asymptomatic. Timing/Duration: 1-3 hours Severity: moderate Improving Factors: nothing Worsening Factors: nothing Associated Symptoms: denies symptoms Allergies/Adverse Reactions: Allergies NO KNOWN ALLERGY Allergy (Verified 02/02/17 12:22) Home Medications: Ambulatory Orders Bimatoprost 0.01% Ophth [Lumigan Ophth Jennifer] 1 each OPHTH BEDTIME 01/18/17 Tramadol HCl [Ultram] 50 mg PO PRN PRN 01/18/17 Metoprolol Succinate [Toprol Xl] 50 mg PO DAILY 12/01/17 Clonidine HCl 0.1 mg PO QAM PRN #3 ml 04/03/18 Levothyroxine Sodium 88 mcg PO DAILY 04/03/18 Losartan Potassium 100 mg PO QAM 04/03/18 Meloxicam [Mobic] 7.5 mg PO DAILY 04/03/18 Review of Systems - Review of Systems Constitutional: States: no symptoms reported EENTM: States: no symptoms reported Respiratory: States: no symptoms reported Cardiology: States: see HPI Gastrointestinal/Abdominal: States: no symptoms reported Genitourinary: States: no symptoms reported Musculoskeletal: States: no symptoms reported Skin: States: no symptoms reported Neurological: States: no symptoms reported Endocrine: States: see HPI Hematologic/Lymphatic: States: no symptoms reported Past Medical History (General) - Patient Medical History Hx Seizures: No Hx Stroke: No Hx Dementia: No Hx Asthma: No Hx of COPD: No Hx Cardiac Disorders: No Hx Congestive Heart Failure: No Hx Pacemaker: No Hx Hypertension: Yes Hx Thyroid Disease: Yes Hx Diabetes: No Hx Gastroesophageal Reflux: No Hx Renal Disease: No Hx Cancer: No Hx of HIV: No Hx Hepatitis C: No Hx MRSA: No - Vaccination History Hx Tetanus, Diphtheria Vaccination: Yes Hx Influenza Vaccination: Yes Hx Pneumococcal Vaccination: No - Social History Hx Tobacco Use: Yes Hx Chewing Tobacco Use: No Hx Alcohol Use: Yes Hx Substance Use: No Hx Substance Use Treatment: No Hx Depression: No Hx Physical Abuse: No Hx Emotional Abuse: No Hx Suspected Abuse: No - Female History Patient : No Family Medical History - Family History Mother Age (years): 93 Living Status: Still Living Hx Family Asthma: No Hx Family Congestive Heart Failure: No Hx Family Hypertension: Yes Hx Family Stroke: No Hx Family Diabetes: No Hx Family Cancer: No Father Family History: Unknown Living Status: Age at (years of age): 70 Cause of : alz Hx Family Asthma: No Hx Family Congestive Heart Failure: No Hx Family Hypertension: No Hx Family Stroke: No Hx Family Diabetes: No Hx Family Cancer: No Physical Exam - Physical Exam General Appearance: Alert Eye Exam: bilateral normal Ears, Nose, Throat: normal ENT inspection Neck: non-tender, full range of motion, supple Respiratory: lungs clear, normal breath sounds Cardiovascular/Chest: normal peripheral pulses, regular rate, rhythm Gastrointestinal/Abdominal: normal bowel sounds, non tender, soft Progress - Progress Progress: 04/03/18 14:35 No sign of end-organ damage on labs. Patient's blood pressure came down to 182 systolic but then went back up to 200. She remained asymptomatic. She was given clonidine 01. mg po x one and an RX for two more tabs to take daily if her pressure goes above 160 systolic in the morning. Care instructions given. E.R. warnings given. Questions were elicited and answered. Patient voiced understanding and agreement with the plan. She will follow up with Dr. Mathews on Friday. Departure - Departure Clinical Impression: Hypertension Disposition: Discharge to Home or Self Care Condition: Good Departure Forms: ED Discharge - Pt. Copy, Patient Portal Self Enrollment Instructions: DI for High Blood Pressure Diet: other - as per your regular doctor Activity: increase activity as tolerated Referrals: Isra Mathews MD [Primary Care Provider] - 1-2 Weeks Prescriptions: Clonidine HCl 0.1 mg PO QAM PRN #3 ml PRN Reason: Hypertension Home Medications: Ambulatory Orders Bimatoprost 0.01% Ophth [Lumigan Ophth Jennifer] 1 each OPHTH BEDTIME 01/18/17 Tramadol HCl [Ultram] 50 mg PO PRN PRN 01/18/17 Metoprolol Succinate [Toprol Xl] 50 mg PO DAILY 12/01/17 Clonidine HCl 0.1 mg PO QAM PRN #3 ml 04/03/18 Levothyroxine Sodium 88 mcg PO DAILY 04/03/18 Losartan Potassium 100 mg PO QAM 04/03/18 Meloxicam [Mobic] 7.5 mg PO DAILY 04/03/18 Additional Instructions: See your regular doctor on Friday for further evaluation. Return to the E.R. for numbness or weakness in any extremity, shortness of breath, or chest pain.
[2018-04-03] MEDS ORDERED: cloNIDine HCL 0.1 MG TAB PO ONE (14:34)
[2018-04-03 14:58] VITALS: BP 155/75; O2SAT 99
== END 2018-04-03 14:56 | disposition home or self-care (01) ==
LOC: ER 12:03
DX: I10 Essential (primary) hypertension (principal); E07.9 Disorder of thyroid, unspecified; Z79.899 Other long term (current) drug therapy; Z87.891 Personal history of nicotine dependence

== ENCOUNTER → 2018-05-15 | Outpatient (CLI) | payer MEDICARE | LOC: GMAJ 10:34 | PROVIDERS: ATTEND Family Medicine | DX: E03.9 Hypothyroidism, unspecified (principal) ==

== ENCOUNTER → 2019-02-17 | Outpatient (CLI) | payer MEDICARE | LOC: GMAJ 15:15 | PROVIDERS: ATTEND Family Medicine | DX: E03.9 Hypothyroidism, unspecified (principal); I10 Essential (primary) hypertension ==

== ENCOUNTER → 2019-03-31 | Outpatient (CLI) | payer MEDICARE ==
--- NOTE | 2019-03-31 16:35 | RAD ---
XR HIP 2 OR MORE VIEWS, XR PELVIS 1-2 VIEWS HISTORY: 79 years Female LOW BACK PAIN COMPARISON: None. TECHNIQUE: AP neutral and frog-leg views of the left hip as well as a single AP view the pelvis. FINDINGS: Sacrum is partially obscured by overlying bowel gas. Partially imaged lumbosacral fusion hardware. Please see same day dedicated lumbar spine radiographs. No acute fracture or dislocation observed. Mild narrowing of the hip joint spaces bilaterally. Mild subchondral sclerosis at the SI joints suggest mild degenerative change. Included overlying soft tissues demonstrate no definite acute abnormality. Scattered vascular calcifications are present. IMPRESSION: No radiographic evidence of an acute osseous abnormality in the pelvis or left hip. Electronically signed by: Jeyson Onofre MD 03/31/2019 4:33 PM CDT
--- NOTE | 2019-04-01 11:06 | MRI ---
EXAM DESCRIPTION: Lumbar Spine w/o Contrast : Magnetic Resonance Imaging. CLINICAL HISTORY: LOW BACK PAIN COMPARISON: MRI scan lumbar spine 08/25/2013 prior to fusion surgery. Radiographs of the lumbar spine pelvis and left hip on the same visit. TECHNIQUE: Multiplanar, multiple standard sequences, non contrast MRI, lumbar spine.. Magnetic susceptibility artifact places limitation on diagnostic quality. FINDINGS: L5-S1: The disc is well visualized on axial T2 series 501, image 3. Fusion construct L3-S1. Interbody fusion devices in each disc space. Also anterior retainer at L5-S1 with fixation screws in the L5 and S1 anterior marrow. No soft tissue edema or fluid collection abutting the posterior elements. No fluid collection or soft tissue mass within the canal. L5-S1: 4 mm grade 1 anterolisthesis. Right foraminal stenosis and moderate left foraminal narrowing. No canal stenosis. Facet joints are fused. Unremarkable position of the interbody fusion device. L4-L5: Interbody fusion device customary position. Mild to moderate right foraminal narrowing. Facet joints are fused. No significant canal narrowing. L3-L4: Interbody fusion device in customary position slightly to the right of midline. Facet joints are fused. No significant canal narrowing. Bilateral foramina are patent slightly more narrow on the right. L2-L3: Disc desiccation and minimal posterior bulging. Hypertrophic arthrosis right facet with effusion in the left facet. Bilateral posterior ligament thickening. AP canal diameter 12 mm. Bilateral foramina are patent. Minimal marrow edema in the central and inferior L2 vertebral body, but no loss of height or retropulsion. L1-L2: Disc desiccation with minimal disc bulge posteriorly. Canal is patent. Posterior elements are unremarkable. Mild narrowing of the left foramen. Minimal progression since the prior study. T12-L1: Normal signal in the disc with disc space maintained. Conus terminates at this level. Posterior elements unremarkable. Canal and foramina are patent. Minimal desiccation of the T11-12 disc with tiny posterior bulge. Increasing inferior T11 endplate changes since the prior study. Canal and foramina are patent. L2-L5 levoscoliosis has progressed since the prior study. Paravertebral soft tissues paraspinal muscle atrophy.. Distal cord normal signal and caliber. Otherwise normal marrow signal in the remaining vertebral bodies and the posterior elements. Vertebral bodies are not compressed at any level. IMPRESSION: 1. Fusion construct L3-S1 with bilateral transpedicular screws at each level, unilateral posterior connecting rods, and anterior retainer with screw attachment at L5-S1. Customary position of the hardware with no bony complications. No soft tissue edema or fluid collections in the paraspinal soft tissues or canal. Decreased L5-S1 anterolisthesis since the prior study. Right foramen remains stenotic with no stenosis on the left, representing improvement. 2. Canal narrowing and foraminal narrowing at other fusion levels, and above L3-L4 but no stenosis. 3. Marrow edema in the mid and inferior aspect of the L2 vertebral body. No loss of height or retropulsion. This could represent an early compression type vertebral body fracture, versus stress injury. No marrow edema in the pedicles. Electronically signed by: Shahriar Moreno MD 04/01/2019 11:05 AM CDT
--- NOTE | 2019-04-01 11:25 | RAD ---
EXAM DESCRIPTION: Lumbar Spine 5 Views: CR/DR/XR CLINICAL HISTORY: 79 years Female LOW BACK PAIN COMPARISON: MRI scan of the lumbar spine, pelvic x-ray and left hip x-ray on this visit. 3 views lumbar spine radiographs 19 Oct 2018. TECHNIQUE: 4-7 views AP Lateral Spot lateral L5-S1 standing Bilateral lateral obliques FINDINGS: Lumbar type vertebra: 5. Fusion construct L3-S1 with bilateral transpedicular screws and interbody fusion devices. Anterior retainer at L5-S1 with fixation screws at L5 and S1. No complications. Disc spaces: L2-L3, progressing to moderate right spondylosis, also stable L1-L2 and T12-L1 Compression deformities: None. Bone Density: Slightly decreased. Alignment: Levoscoliosis L2-L4. Anterolisthesis is stable at L5-S1. Oblique: Unremarkable. Facet joints: Minimal arthrosis in the upper levels. Lower levels at the hardware are fused. Abdomen: Bowel pattern unremarkable. Atherosclerotic calcifications in the aorta. IMPRESSION: 1. Fusion construct L3-S1. No complications. 2. Moderate right side spondylosis at L2-L3 is progressing since the prior study. Levoscoliosis may also be increasing. 3. Anterolisthesis is stable at L5-S1. No compression type vertebral body fractures.. Electronically signed by: Shahriar Moreno MD 04/01/2019 11:23 AM CDT
== END ==
LOC: MRI 13:54
PROVIDERS: ATTEND Physical Medicine & Rehabilitation
DX: M47.897 Other spondylosis, lumbosacral region (principal); M43.17 Spondylolisthesis, lumbosacral region; M41.86 Other forms of scoliosis, lumbar region; Z98.1 Arthrodesis status

== ENCOUNTER → 2019-07-12 | Outpatient (CLI) | payer MEDICARE | LOC: LAB.O 12:36 | PROVIDERS: ATTEND Nurse Practitioner Acute Care | DX: M79.10 Myalgia, unspecified site (principal) ==

== ENCOUNTER → 2020-06-12 | Outpatient (CLI) | payer MEDICARE ==
--- NOTE | 2020-06-12 14:01 | MRI ---
EXAM DESCRIPTION: Brain w/o Contrast: MRI. CLINICAL HISTORY: DIZZINESS AND GIDDINESS COMPARISON: None. TECHNIQUE: Multiplanar, high-field MRI unit, multiple diffusion sequences, multiple conventional sequences without contrast. FINDINGS: Bilateral small foci of hyperintense FLAIR and T2-weighted signal in the subcortical white matter at the level of the ventricles and superior to the ventricles in the frontoparietal occipital lobes. Minimal abnormalities in the periventricular white matter. Relative sparing of the bilateral temporal lobes.. No hemorrhage, no cerebral edema, no midline shift.. Prominent perivascular space versus cyst in the left basal ganglia; otherwise basal ganglia with negative findings. No hemorrhage, no cerebral edema, no mass-effect. Normal signal in the brainstem and cerebellar hemispheres. Concordance of the diffusion and non-diffusion sequences with no diffusion restriction. Cortical sulci, ventricles, and other CSF spaces, and the subdural spaces are normally configured for the patient's age. Minimal cortical atrophy frontal and parietal lobes with less atrophy in the occipital lobes. No effacement or displacement. No midline shift. No extra-axial hemorrhage. Minimal cerebellar atrophy. Normal flow signal void in the major vessels of the [place], and the venous sinuses. IACs are symmetric bilaterally. Normal signal in the bilateral mastoid air cells. No mass effect in the bilateral cerebellopontine angles. Pituitary gland occupies most of the sella. Base of the cerebellar tonsils is just above the foramen magnum. Minimal mucoperiosteal thickening in the paranasal sinuses.. The bony calvarium is intact. IMPRESSION: 1. Bilateral relatively symmetric white matter lesions mostly in the subcortical white matter with minimal involvement of the periventricular white matter. No intra-axial hemorrhage, no mass effect or midline shift. No extra-axial hemorrhage or abnormal fluid collection. Normal diffusion with no evidence of significant ischemia or acute or subacute infarction. 2. Minimal cortical atrophy and cerebellar atrophy is most likely physiologic. Minimal chronic paranasal sinusitis. Electronically signed by: Shahriar Moreno MD 06/12/2020 1:59 PM [facility]
== END ==
LOC: MRI 09:32
PROVIDERS: ATTEND Family Medicine
DX: R90.82 White matter disease, unspecified (principal); J32.9 Chronic sinusitis, unspecified; G31.9 Degenerative disease of nervous system, unspecified; R42 Dizziness and giddiness

== ENCOUNTER → 2020-07-25 | Outpatient (CLI) | payer MEDICARE | LOC: GMAJ 11:45 | PROVIDERS: ATTEND Family Medicine | DX: E03.9 Hypothyroidism, unspecified (principal); I10 Essential (primary) hypertension ==